=== PATIENT | male | born 1960 | race Caucasian/White ===

== ENCOUNTER 2017-08-09 04:02 | Emergency (ER) | payer MEDICAID ==
[~2017-08-09] VITALS: Ht 165.1 cm; Wt 90.7 kg
[2017-08-09 04:16] VITALS: BP 119/61
--- NOTE | 2017-08-09 04:22 | NUR ---
PT. AMBULATED TO [facility]
--- NOTE | 2017-08-09 04:35 | NUR ---
57 Y/O M W/C/O L SHOULDER/NECK/ARM/BACK X 03/2017 S/P SURGEY ON AND OFF. PT STATES R/O MEDS THIS WK. NO OTHER S/S OF DISTRESS NOTED.
[2017-08-09] MEDS ORDERED: KETOROLAC 30 MG/ML VIAL IM ONE (04:50)
--- NOTE | 2017-08-09 05:11 | NUR ---
PT BACK FROM X-RAY
[2017-08-09 05:38] VITALS: BP 140/72
--- NOTE | 2017-08-09 05:38 | NUR ---
Patient discharged with v/s stable. Written and verbal after care instructions given and explained. Patient alert, oriented and verbalized understanding of instructions. Ambulatory with steady gait. All questions addressed prior to discharge. ID band removed. Patient advised to follow up with PMD. Rx of NORCO 5MG-325MG given. Patient educated on indication of medication including possible reaction and side effects. Opportunity to ask questions provided and answered.
== END 2017-08-09 05:38 | disposition home or self-care (01) ==
LOC: MED 04:02
DX: Z76.0 Encounter for issue of repeat prescription (principal); M25.512 Pain in left shoulder
CPT/HCPCS: 73030; 96372; 99284; J1885